=== PATIENT | female | born 1960 | race Caucasian/White ===

== ENCOUNTER → 2024-02-06 11:11 | Outpatient (REF) | payer MEDICARE, SELFPAY | LOC: WDC 11:11 | PROVIDERS: ATTENDING PHYSICIAN Family Medicine | DX: Z12.31 Encounter for screening mammogram for malignant neoplasm of breast (principal) | CPT/HCPCS: 77063; 77067 ==

== ENCOUNTER → 2024-03-12 10:51 | Outpatient (REF) | payer MEDICARE, SELFPAY | LOC: RAD 10:51 | PROVIDERS: ATTENDING PHYSICIAN Internal Medicine Rheumatology; FAMILY PHYSICIAN Family Medicine | DX: M81.0 Age-related osteoporosis without current pathological fracture (principal) | CPT/HCPCS: 77080 ==

== ENCOUNTER 2025-01-06 16:23 | Emergency (ER) | payer MEDICARE, SELFPAY ==
[2025-01-06 16:28] VITALS: BP 135/61
[2025-01-06 16:53] LABS: % Basophils 0.8 % (0-2); % Eosinophils 2.1 % (0-6); % Immature Granulocytes 0.4 % (0-0.5); % Lymphocytes 33.8 % (20.5-51.1); % Monocytes 9.4 % (1.7-9.3); % Neutrophils 53.5 % (42.2-75.2); Absolute Basophils 0.1 10^3/uL (0-0.2); Absolute Eosinophils 0.2 10^3/uL (0-0.7); Absolute Lymphocytes 2.4 10^3/uL (1.2-3.4); Absolute Monocytes 0.7 10^3/uL (0.1-0.6); Absolute Neutrophils 3.9 10^3/uL (1.4-6.5); Hematocrit 41.2 % (37.0-47.0); Hemoglobin 14.4 g/dL (12.0-16.0); Mean Corpuscular Hgb 29.5 pg (27.0-31.0); Mean Corpuscular Volume 84.4 fL (81.0-99.0); Mean Platelet Volume 9.8 fL (7.4-10.4); Nucleated Red Blood Cells % 0 %; Platelet Count 300 10^3/uL (130-400); Red Blood Cell Count 4.88 10^6/uL (4.20-5.40); Red Cell Dist. Width 12.8 % (11.5-14.5); White Blood Cell Count 7.2 10^3/uL (4.8-10.8)
[2025-01-06 17:15] LABS: ALT (SGPT) 56 U/L (0-35); AST (SGOT) 62 U/L (14-36); Albumin 4.9 g/dl (3.5-5.0); Alkaline Phosphatase 121 U/L (38-126); Blood Urea Nitrogen 24 mg/dl (7-17); Calcium 9.7 mg/dl (8.4-10.2); Carbon Dioxide 31 mmol/L (22-30); Chloride 92 mmol/L (98-107); Glucose 113 mg/dl (70-99); Potassium 3.3 mmol/L (3.5-5.1); Sodium 131 mmol/L (135-145); Total Bilirubin 1.1 mg/dl (0.2-1.3); Total Protein 7.4 g/dl (6.3-8.2); eGFR 46.49
[2025-01-06 17:23] LABS: Troponin I < 0.012 ng/ml
--- NOTE | 2025-01-06 19:28 | ED.GENMED ---
History of Present Illness
General
Chief Complaint: Abdominal Symptoms
Source: patient
Exam Limitations: none
Time Seen by Provider: 01/06/25 19:14
Nursing documentation reviewed up to this point in time: agreed with
History of Present Illness
History of Present Illness:
64-year-old female with history of psoriatic arthritis, fibromyalgia, M�ni�re's disease, MICHAEL, HLD presents for 1 week of abdominal cramps with diarrhea every time she eats anything. She spoke with her PCP 4 days ago who thought she had the
norovirus and asked her to just wait it out for 5 days, she has waited for 7 days and nothing is changed. She denies fever or chills. Her diarrhea is nonbloody. She explains that 3 days ago she put 3 pieces of pear into her mouth and 30 minutes
later had severe diarrhea preceded by abdominal cramping. Yesterday and today she had exactly 10 potato chips and each time short while later developed severe diarrhea with abdominal cramps. She is concerned she is dehydrated that she cannot hold
anything down.
Her last diarrheal stool was 11 AM today and she has not eaten anything since. She states she feels weak and lightheaded.
No recent antibiotic use.
Past History
Past History
ED Past Medical History: Hypercholesterolemia, Other (Fibromyalgia, M�ni�re's disease, migraines, rosacea) and Other (Psoriatic arthritis)
ED Past Surgical History: Cholecystectomy, Gynecological and Orthopedic (Bilateral rotator cuff repairs, right biceps tendon repair)
Social History
Tobacco: Non-smoker
Alcohol: None
Personal:
Living: with family
Employment: Not employed
Review of Systems
Review of Systems
Allergies reviewed?: Yes
All Other Systems: ROS reviewed and negative except as documented in HPI and ROS
Constitutional: Reports fatigue (lightheaded at times); Denies fever or chills
Respiratory: Denies trouble breathing
Cardiac: Denies chest pain
ABD/GI: Reports abdominal pain and diarrhea; Denies nausea, vomiting, bloody stools or black stools
: Denies dysuria, frequency or difficulty voiding
Musculoskeletal: Reports no symptoms
Skin: Reports no symptoms
Neurological: Reports no symptoms
Phy Exam
Physical Exam
Physical Exam:
GENERAL: No acute distress. A&Ox3.
CONSTITUTIONAL: Afebrile.
EYES: clear, conjunctivae normal
ENMT: moist mucus membranes, Pharynx nl
RESPIRATORY: Regular respirations, nonlabored, lungs clear.
CARDIOVASCULAR: Regular rate and rhythm, no murmurs, no rubs.
GI: Soft, nontender, normal BS
MUSCULOSKELETAL: Moves with ease. Well perfused.
SKIN: Warm, dry, pink
PSYCH: Normal mood and affect. Well kept, interactive and appropriate
NEUROLOGIC: Awake, alert and oriented. No focal neurological deficits
Course
Orders/Labs/Results
Orders:
Orders
01/06/25 16:31
Electrocardiogram (*1) Urgent
Reason for Study: Chest Pain
EKG- Treatment ONCE
01/06/25 16:33
Complete Blood Count/With Diff Urgent
Comprehensive Metabolic Panel Urgent
Troponin I Urgent
01/06/25 19:16
0.9% Sodium Chloride 1000 ml [Nss] 1,000 ml IV BOLUS
01/06/25 19:27
CT Abd/Pel (IV only)-DH only Urgent
Comment:
Reason For Exam: diarrhea with cramping
Abnormal Lab Results
01/06/25
16:33
Absolute Monos (auto) 0.7 H 10^3/uL
(0.1-0.6)
Monocytes % 9.4 H %
(1.7-9.3)
Sodium 131 L mmol/L
(135-145)
Potassium 3.3 L mmol/L
(3.5-5.1)
Chloride 92 L mmol/L
(98-107)
Carbon Dioxide 31 H mmol/L
(22-30)
BUN 24 H mg/dl
(7-17)
Creatinine 1.3 H mg/dL
(0.6-1.0)
Glucose 113 H mg/dl
(70-99)
AST 62 H U/L
(14-36)
ALT 56 H U/L
(0-35)
01/06/25 16:33
01/06/25 16:33
Vital Signs
Initial and Last Documented VS:
Initial Vital Signs
Temp Pulse Resp BP Pulse Ox
98.6 F 84 16 135/61 99
01/06/25 16:28 01/06/25 16:28 01/06/25 16:28 01/06/25 16:28 01/06/25 16:28
Last Documented Vital Signs
Temp Pulse Resp BP Pulse Ox
98.6 F 75 18 135/64 98
01/06/25 16:28 01/06/25 22:31 01/06/25 22:31 01/06/25 22:31 01/06/25 22:50
Manager Unix consulted with Physician
Manager Unix consulted with physician?: Yes
Name of Physician Consulted: eKila
MDM/Problems Addressed
Differential Diagnosis Includes:
Viral gastroenteritis, colitis, diverticulitis
MDM/Problems Addressed:
64-year-old female with history of psoriatic arthritis, fibromyalgia, M�ni�re's disease, MICHAEL, HLD presents for 1 week of abdominal cramps with diarrhea every time she eats anything. She spoke with her PCP 4 days ago who thought she had the
norovirus and asked her to just wait it out for 5 days, she has waited for 7 days and nothing is changed. She denies fever or chills. Her diarrhea is nonbloody. She explains that 3 days ago she put 3 pieces of pear into her mouth and 30 minutes
later had severe diarrhea preceded by abdominal cramping. Yesterday and today she had exactly 10 potato chips and each time short while later developed severe diarrhea with abdominal cramps. She is concerned she is dehydrated that she cannot hold
anything down.
Her last diarrheal stool was 11 AM today and she has not eaten anything since. She states she feels weak and lightheaded.
No recent antibiotic use.
Afebrile, NAD
CBC normal
CMP: Potassium 3.3. BUN/creat 24/1.3 likely from dehydration.
Troponin normal
EKG NSR
Patient is totally nontoxic-appearing, she is pleasant and conversive, NAD, she states she is fine as long as she does not eat anything.
9:[address] abd/pelvis radiology report read: IMPRESSION: Moderate pancolitis. New.
Hepatic fatty infiltration. Stable
Prior cholecystectomy. Stable
Right middle lobe and left lower lobe pulmonary nodules. Stable from 2020 suggesting they are benign.
Pt remains comfortable. informed of CT results
IL NSS IV in
Given food to eat to stimulate BM to send to lab
Pt no longer take Otezla but does get Remicade infusions every 5 weeks for her psoriatic arthritis.
11:00
After eating, no diarrhea, afebrile, denies pain, looks well
She wants to go home, this is reasonable. She is asymptomatic
Strict return instructions reviewed.
Out Pt lab slip given for stool testing and repeat BMP
Case discussed with Dr. Pedraza who agrees with assessment and plan.
*Critical Care Note
Total Time (30-74mins, 75-104mins- exclusive of procedures): Not Applicable
ED Attending Note
-
Portions of this chart may have been created with voice recognition software.� Occasional wrong word or��sound alike� substitutions may have occurred due to the inherent limitations of voice recognition software.
Discharge Plan
Departure
Patient Disposition: Home (Routine Discharge)
Date of Disposition: 01/06/25
Time of Disposition: 23:05
Patient with high blood pressure during this ER visit?: No
Condition: Good
Discharge Problem:
Pancolitis
Instructions: Clear Liquid Diet, [place] Diet, Colitis, Abdominal Pain
Prescriptions:
No Action
rosuvastatin [Crestor] 5 MG tablet
5 mg PO DAILY
triamterene-hydrochlorothiazid 1 CAP capsule
1 cap PO DAILY
tramadol 50 MG tablet
100 mg PO TID
zolmitriptan [Zomig] 5 MG tablet
5 mg PO PRN
cyclobenzaprine 10 MG tablet
10 mg PO PRN PRN (Reason: anxiety)
lorazepam 0.5 MG tablet
0.5 mg PO PRN PRN (Reason: anixety)
gabapentin 300 MG capsule
300 mg PO HS
zrjhuyf-ripkkezvmhrbt-xfnnajgk 1 TABLET tablet
250 mg PO PRN PRN (Reason: migraine)
cholecalciferol (vitamin D3) [Vitamin D3] 1,000 UNIT capsule
1,000 unit PO DAILY
melatonin-pyridoxine HCl (B6) 1 EACH tablet
1 ea PO HS
clobetasol-emollient 50 GM foam
50 gm TP PRN PRN (Reason: psoriatic)
metronidazole-skin cleansr #23 [Rosadan] 1 EACH kit,cleanser and cream
1 ea TP BID
apremilast [Otezla] 30 MG tablet
30 mg PO BID
ondansetron 4 MG tablet,disintegrating
4 mg PO TIDPRN PRN (Reason: nausea/vomiting) Qty: 10 0RF
Referrals:
Jaylan Murdock MD [Family Provider] -
Man Richard MD [Active] - Next open appointment
Activity Restrictions/Additional Instructions:
As we discussed, you have a generalized inflammation of your colon called pancolitis.
Clear liquid diet tomorrow then slowly advance your diet to full liquids then bland then to normal diet as tolerated
Collect a diarrheal stool sample in the container provided and bring it to our lab with the outpatient lab slip provided
Have your blood work rechecked also the same day. If you have no diarrhea, at least have your blood work checked Monday 01/08 or Thursday 01/11
Drink plenty of fluids you were mildly dehydrated
Make appointment to see the GI doctor.
Check the with your primary doctor 2-3 days after the lab work or check patient portal for your results and be sure to contact your doctor or the GI doctor if anything is abnormal.
Return here immediately for fever, worsening abdominal pain, worsening or bloody diarrhea or feeling worse in any way
Interventions
Interventions:
*Risk Screen - Suicide Last Done: 01/06/25 16:28
*General Assessment Last Done: 01/06/25 23:31
*Neglect/Abuse Screening Last Done: 01/06/25 16:28
ED- Fall Risk Assessment Last Done: 01/06/25 20:37
*ED COVID-19 Vaccine History Last Done: 01/06/25 23:31
*Nursing Disposition Last Done: 01/06/25 23:31
DC-Eyakrx-Lwlzlhwmwf Assessment Last Done: 01/06/25 19:48
Discharge Date and Time
Discharge Date/Time: 01/06/25 23:32
Print Language: [place] LUCI[place]
[2025-01-06] MEDS: NSS 1000 IV (19:47)
[2025-01-06 19:49] VITALS: BP 145/66
[2025-01-06 21:08] VITALS: BP 129/60
[2025-01-06 22:31] VITALS: BP 135/64
== END 2025-01-06 23:32 | disposition home or self-care (01) ==
LOC: EMR 16:23
PROVIDERS: Emergency Medicine; EMERGENCY PHYSICIAN Student in an Organized Health Care Education/Training Program; FAMILY PHYSICIAN Family Medicine
DX: K52.9 Noninfective gastroenteritis and colitis, unspecified (principal); E78.00 Pure hypercholesterolemia, unspecified; L40.50 Arthropathic psoriasis, unspecified; M79.7 Fibromyalgia; Z90.49 Acquired absence of other specified parts of digestive tract; Z79.899 Other long term (current) drug therapy
CPT/HCPCS: 99284; 96360; 74177; 80053; 84484; 85025; 93005; Q9967

== ENCOUNTER → 2025-02-11 11:19 | Outpatient (REF) | payer MEDICARE, SELFPAY | LOC: WDC 11:19 | PROVIDERS: ATTENDING PHYSICIAN Family Medicine | DX: Z12.31 Encounter for screening mammogram for malignant neoplasm of breast (principal) | CPT/HCPCS: 77063; 77067 ==

== ENCOUNTER 2025-11-01 13:49 | Emergency (ER) | payer MEDICARE, SELFPAY ==
[2025-11-01 13:54] VITALS: BP 147/80
--- NOTE | 2025-11-01 14:19 | ED.MUSCINJ ---
HPI-Injury
General
Chief Complaint: Fall
Time Seen by Provider: 11/01/25 14:06
Nursing documentation reviewed up to this point in time: agreed with
History of Present Illness-Injury
Initial Injury comments:
65-year-old female presents to the ER for further evaluation of head injury after she tripped while walking her dog this morning. Patient states that she struck mainly with her forehead, she believes that she tripped over her own feet. No loss of
consciousness. No change in vision. She reports localized facial pain over her left eye. She reported some mild nausea and dizziness before arriving to the ER, this has resolved. Patient denies paresthesias to her arms or legs. No neck pain.
She does have some lower back pain since the fall. She has been able to ambulate independently without assistance. She was able to drive herself home but took an Uber to the ER. She does take tramadol 3 times daily and did take her routine
scheduled dose prior to arrival. She also reports some significant pain in her left fifth digit, she believes that the dog's leash got wrapped around her hand. She does not take any blood thinners.
Past History
Past History
ED Past Medical History: Hypercholesterolemia, Other (Fibromyalgia, M�ni�re's disease, migraines, rosacea) and Other (Psoriatic arthritis)
ED Past Surgical History: Cholecystectomy, Gynecological and Orthopedic (Bilateral rotator cuff repairs, right biceps tendon repair)
Social History
Tobacco: Non-smoker
Alcohol: None
Personal:
Living: with family
Employment: Not employed
Review of Systems
Review of Systems
Allergies reviewed?: Yes
Phy Exam
Physical Exam
Physical Exam:
Patient is awake, alert, appears in no acute distress, head is normocephalic, small hematoma present above left orbit, superficial abrasion present over the lateral supraorbital ridge, mild diffuse pain on palpation over this area, no crepitus, no
bony deformity, PERRL, EOMI mucous membranes moist, conjunctiva pink, bilateral tympanic membranes are normal, no hemotympanum, no facial asymmetry noted, tongue is midline, no midline pain on palpation of cervical spine, moving neck in all
directions without apparent limitation, no pain on palpation of chest, abdomen, pelvis is stable to rock, pain is reproduced on palpation of right piriformis and right gluteus, no overlying skin change, no midline pain on palpation of lumbar spine,
no paraspinal hypertonicity noted in lower paralumbar musculature, moving bilateral lower extremities symmetrically without pain on palpation or with active range of motion, no JVD, abdomen is soft and nontender on palpation, extremities without
edema, GCS is 15, intact sensation to light touch symmetric x 4 extremities, no dysdiadochokinesia, no ataxia, no pronator drift
Injury Course
Orders/Labs/Results
Orders:
Orders
11/01/25 14:15
CR Finger(s)/thumb Min 2 Vw Lt Urgent
Comment:
Reason For Exam: trauma, attn 5th digit
11/01/25 14:17
Lidocaine [Lidocaine 4% Patch] 1 patch TOPICAL ONCE ONE
Apply Lidocaine patch(s) to:: R sacroiliac joint
11/01/25 14:40
Aluminium Finger Splint Left ONCE
Comment: 5th digit
*Radiology
Radiology exam reviewed: preliminary read by ED provider (I independently viewed and interpreted x-rays of the left fifth finger showing a small avulsion fracture off of the proximal palmar middle phalanx)
*Pulse Oximetry
SaO2: 98
Oxygen Mode of Delivery: Room air
Patient hypoxic: no
*Critical Care Note
Total Time (30-74mins, 75-104mins- exclusive of procedures): Not Applicable
Update Note
Update Note:
I discussed with patient very reassuring exam as far as head injury is concerned, no red flag symptoms that would warrant CT head. Patient is agreeable for observation only. She is declining any need for analgesia for hand, will obtain x-ray of
the fifth digit. Will also apply lidocaine patch to her lower back related to muscle strain. She has no questions at the current time.
1445: I discussed with patient x-ray concerning for small avulsion fracture on the palmar aspect of the hand. I discussed with patient use of splint and need to follow-up with orthopedics for reevaluation and further care. I discussed with patient
neurologic warning symptoms and strict return precautions. I gave additional supportive instructions with regards to facial wound healing. Patient believes her tetanus was more than 5 years ago but would not necessarily want to have vaccination
today. Will refer to primary care physician for further discussion. Patient feels comfortable with plan for discharge and has no questions at the current time.
ED Attending Note
-
Portions of this chart may have been created with voice recognition software.� Occasional wrong word or��sound alike� substitutions may have occurred due to the inherent limitations of voice recognition software.
Discharge Plan
Departure
Patient Disposition: Home (Routine Discharge)
Date of Disposition: 11/01/25
Time of Disposition: 14:45
Patient with high blood pressure during this ER visit?: No
Discharge Problem:
Minor closed head injury, Contusion of face, Abrasion of face, Finger fracture, left, Low back sprain
Instructions: Head injury in adults, Hand Fracture ED, Abrasions - ED (DC), Contusion
Prescriptions:
No Action
rosuvastatin [Crestor] 5 MG tablet
5 mg PO DAILY
triamterene-hydrochlorothiazid 1 CAP capsule
1 cap PO DAILY
tramadol 50 MG tablet
100 mg PO TID
zolmitriptan [Zomig] 5 MG tablet
5 mg PO PRN
cyclobenzaprine 10 MG tablet
10 mg PO PRN PRN (Reason: anxiety)
lorazepam 0.5 MG tablet
0.5 mg PO PRN PRN (Reason: anixety)
gabapentin 300 MG capsule
300 mg PO HS
khvhjmw-vlseugrribtvj-bhtsqpzb 1 TABLET tablet
250 mg PO PRN PRN (Reason: migraine)
cholecalciferol (vitamin D3) [Vitamin D3] 1,000 UNIT capsule
1,000 unit PO DAILY
melatonin-pyridoxine HCl (B6) 1 EACH tablet
1 ea PO HS
clobetasol-emollient 50 GM foam
50 gm TP PRN PRN (Reason: psoriatic)
metronidazole-skin cleansr #23 [Rosadan] 1 EACH kit,cleanser and cream
1 ea TP BID
apremilast [Otezla] 30 MG tablet
30 mg PO BID
ondansetron 4 MG tablet,disintegrating
4 mg PO TIDPRN PRN (Reason: nausea/vomiting) Qty: 10 0RF
Referrals:
Jaylan Murdock MD [Family Provider, Family Practice]
Laz Guerrero MD [Active, Orthopedics] - Follow up in 5-7 days
Discharge Problem: Finger fracture, left
Activity Restrictions/Additional Instructions:
Encourage fluids. Continue using your current tramadol as needed for pain. You may add topical ssdi-bfq-ebrqlld Salonpas patch for lower back discomfort as needed. You may also add Tylenol or ibuprofen as available [id number] for additional
pain relief.
Please try Arnica cream or lotion as available [id number] to help with facial bruising. Please apply Vaseline or [id number]-[id number] topical antibiotic ointment to area of abrasion on your face to help with healing.
Keep splint present on finger until you are seen in follow-up with orthopedics. Please contact their office today to schedule appointment for reevaluation.
Please contact Dr. Murdock to discuss your current tetanus booster status, to see if you would benefit from additional vaccination.
Return to the ER for any concerns including but not limited to worsening headache, repetitive vomiting, change in vision or focal weakness of your body
Interventions
Interventions:
*Risk Screen - Suicide Last Done: 11/01/25 13:49
*General Assessment Last Done: 11/01/25 13:54
*Neglect/Abuse Screening Last Done: 11/01/25 13:54
Discharge Date and Time
Print Language: POLISH
[2025-11-01] MEDS: LIDOCAINE 4% PATCH 1 PATCH TOPICAL (14:36)
[2025-11-01 15:22] VITALS: BP 132/75
== END 2025-11-01 15:25 | disposition home or self-care (01) ==
LOC: EMR 13:49
PROVIDERS: EMERGENCY PHYSICIAN Emergency Medicine; FAMILY PHYSICIAN Family Medicine
DX: S09.90XA Unspecified injury of head, initial encounter (principal); S00.83XA Contusion of other part of head, initial encounter; S00.81XA Abrasion of other part of head, initial encounter; S62.627A Displaced fracture of middle phalanx of left little finger, initial encounter for closed fracture; S33.9XXA Sprain of unspecified parts of lumbar spine and pelvis, initial encounter; W01.0XXA Fall on same level from slipping, tripping and stumbling without subsequent striking against object, initial encounter; Y93.K1 Activity, walking an animal; E78.00 Pure hypercholesterolemia, unspecified; L40.50 Arthropathic psoriasis, unspecified; M79.7 Fibromyalgia; G43.909 Migraine, unspecified, not intractable, without status migrainosus
CPT/HCPCS: 99283; 73140